=== PATIENT | female | born 1940 | race Caucasian/White ===

== ENCOUNTER 2023-08-13 15:04 | Emergency (ER) | payer MEDICARE ==
[~2023-08-13] VITALS: Ht 167.6 cm; Wt 99.8 kg
[2023-08-13 15:14] VITALS: BP 149/66; PULSE 79; RESP 16; TEMP 97.3; O2SAT 98
[2023-08-13] MEDS ORDERED: KETOROLAC 30 MG/ML VIAL IM ONE (15:35)
[2023-08-13] MEDS: ACETAMINOPHEN EXTRA STRENGTH 500 MG TAB PO ONE (15:56)
[2023-08-13] MEDS: KETOROLAC 30 MG/ML VIAL IVP ONE (15:57)
[2023-08-13 17:10] VITALS: BP 149/66; PULSE 79; RESP 16; TEMP 97.3; O2SAT 98
== END 2023-08-13 17:10 | disposition home or self-care (01) ==
LOC: MED 15:04
DX: S09.90XA Unspecified injury of head, initial encounter (principal); R51.9 Headache, unspecified; M25.551 Pain in right hip; R14.3 Flatulence; Z88.5 Allergy status to narcotic agent; W01.0XXA Fall on same level from slipping, tripping and stumbling without subsequent striking against object, initial encounter; Y93.89 Activity, other specified; Y92.39 Other specified sports and athletic area as the place of occurrence of the external cause; Y99.8 Other external cause status
CPT/HCPCS: 70450; 72125; 74176; 96374; 99285; J1885